=== PATIENT | female | born 1955 | race Caucasian/White ===

== ENCOUNTER 2019-03-31 23:12 | Emergency (ER) | payer BC ==
[~2019-03-31] VITALS: Ht 162.6 cm; Wt 70.3 kg
[2019-04-01] MEDS ORDERED: ALPR.5 PO (00:48)
[2019-04-01] MEDS ORDERED: ATOR10 PO (00:48)
[2019-04-01] MEDS ORDERED: ZOLP10 PO (00:49)
[2019-04-01] MEDS ORDERED: ASPI81CH PO (00:49)
[2019-04-01] MEDS ORDERED: METO25ER PO (00:49)
[2019-04-01] MEDS ORDERED: Norco 5-325 Ta1 EACH PO (01:06)
[2019-04-01] MEDS ORDERED: CEPH500 PO (01:06)
== END 2019-04-01 01:15 | disposition home or self-care (01) ==
LOC: ER 23:12
DX: L03.113 Cellulitis of right upper limb (principal); I10 Essential (primary) hypertension; Z79.82 Long term (current) use of aspirin; Z79.899 Other long term (current) drug therapy
CPT/HCPCS: 99283; A9270-GY

== ENCOUNTER 2019-04-07 15:38 | Emergency (ER) | payer BC ==
[~2019-04-07] VITALS: Ht 162.6 cm; Wt 70.3 kg
[~2019-04-07 15:38] MED LIST: ALPR.5 PO; ASPI81CH PO; ATOR10 PO; CEPH500 PO; METO25ER PO; Norco 5-325 Ta1 EACH PO; ZOLP10 PO
[2019-04-07] MEDS ORDERED: Monodox100 MG PO (17:18)
[2019-04-07] MEDS ORDERED: Percocet 10-321 EACH PO (17:18)
== END 2019-04-07 17:22 | disposition home or self-care (01) ==
LOC: ER 15:38
DX: L03.113 Cellulitis of right upper limb (principal); Z79.899 Other long term (current) drug therapy; I10 Essential (primary) hypertension
CPT/HCPCS: 73090; 99283-25

== ENCOUNTER 2020-03-27 08:54 | Day surgery (SDC) | payer BC ==
[~2020-03-27] VITALS: Ht 165.1 cm; Wt 76.8 kg
[~2020-03-27 08:54] MED LIST changes: +Monodox100 MG PO; +Percocet 10-321 EACH PO
[2020-03-27] MEDS ORDERED: XOPENEX0.63 MG/3 INH (09:13)
[2020-03-27] MEDS ORDERED: KAPSPARGO SPRI100 MG PO (09:14)
[2020-03-27] MEDS ORDERED: Aspirin EC81 MG PO (09:14)
[2020-03-27] MEDS ORDERED: ENTRESTO 97 MG1 EACH PO (09:15)
[2020-03-27] MEDS ORDERED: TIZA4 PO (09:15)
== END 2020-03-27 11:08 | disposition home or self-care (01) ==
LOC: ORSCSDS 08:54
PROVIDERS: Internal Medicine Gastroenterology
PROC: 0DBN8ZX Excision of Sigmoid Colon, Via Natural or Artificial Opening Endoscopic, Diagnostic (ICD-10-PCS; principal; 2020-03-27 09:45)
DX: Z12.11 Encounter for screening for malignant neoplasm of colon (principal); D12.5 Benign neoplasm of sigmoid colon; K64.8 Other hemorrhoids; K57.30 Diverticulosis of large intestine without perforation or abscess without bleeding; I10 Essential (primary) hypertension; I25.10 Atherosclerotic heart disease of native coronary artery without angina pectoris; Z86.73 Personal history of transient ischemic attack (TIA), and cerebral infarction without residual deficits; Z79.82 Long term (current) use of aspirin; Z79.899 Other long term (current) drug therapy
CPT/HCPCS: 88305; J2704; J7120

== ENCOUNTER 2020-07-29 09:37 | Day surgery (SDC) | payer BC ==
[~2020-07-29 09:37] MED LIST changes: +Aspirin EC81 MG PO; +ENTRESTO 97 MG1 EACH PO; +KAPSPARGO SPRI100 MG PO; +TIZA4 PO; +XOPENEX0.63 MG/3 INH
== END 2020-07-29 22:50 | disposition home or self-care (01) ==
LOC: US 09:37
DX: R22.1 Localized swelling, mass and lump, neck (principal)
CPT/HCPCS: 76536

== ENCOUNTER 2021-02-18 06:38 | Day surgery (SDC) | payer BC ==
[~2021-02-18] VITALS: Ht 162.6 cm; Wt 80.2 kg
[~2021-02-18 06:38] MED LIST changes: +ALPRAZOLAM0.5 MG PO; +Ambien10 MG PO; +LIVALO2 MG PO; +METO50ER PO
[2021-02-18] MEDS ORDERED: OXYCODONE-ACET1 EAC2 PO (07:22)
[2021-02-18] MEDS ORDERED: TIZA4 PO (07:23)
[2021-02-18] MEDS ORDERED: Ventolin/Prove6.7 GM INH (07:23)
[2021-02-18] MEDS ORDERED: ENTRESTO 97 MG1 EAC3 PO (07:23)
== END 2021-02-18 11:00 | disposition home or self-care (01) ==
LOC: ORSCSDS 06:38
PROVIDERS: Otolaryngology
PROC: 8E09XBZ Computer Assisted Procedure of Head and Neck Region (ICD-10-PCS; principal; 2021-02-18 07:30)
PROC: 0CBM8ZX Excision of Pharynx, Via Natural or Artificial Opening Endoscopic, Diagnostic (ICD-10-PCS; principal; 2021-02-18 07:30)
PROC: 09TL4ZZ Resection of Nasal Turbinate, Percutaneous Endoscopic Approach (ICD-10-PCS; principal; 2021-02-18 07:30)
PROC: 09DU4ZZ Extraction of Right Ethmoid Sinus, Percutaneous Endoscopic Approach (ICD-10-PCS; principal; 2021-02-18 07:30)
PROC: 09BL4ZZ Excision of Nasal Turbinate, Percutaneous Endoscopic Approach (ICD-10-PCS; principal; 2021-02-18 07:30)
DX: J38.7 Other diseases of larynx (principal); J32.3 Chronic sphenoidal sinusitis; J32.0 Chronic maxillary sinusitis; J32.8 Other chronic sinusitis; J34.89 Other specified disorders of nose and nasal sinuses; J34.3 Hypertrophy of nasal turbinates; I10 Essential (primary) hypertension; J45.909 Unspecified asthma, uncomplicated; Z79.899 Other long term (current) drug therapy
CPT/HCPCS: 87070; 87075; 87077; 87186; 87205; 88304; 88305; 88311; A9270; C2625; J0171; J1100; J2250; J2370; J2405; J2704; J3010; J7120

== ENCOUNTER 2021-03-01 21:09 | Emergency (ER) | payer BC ==
[~2021-03-01] VITALS: Ht 162.6 cm; Wt 77.1 kg
[~2021-03-01 21:09] MED LIST changes: +ENTRESTO 97 MG1 EAC3 PO; +OXYCODONE-ACET1 EAC2 PO; +Ventolin/Prove6.7 GM INH
[2021-03-01 21:32] LABS: BASOPHILS ABSOLUTE AUTO 0.03 K/mm3 (0.00-0.23); BASOPHILS PERCENT AUTO 0 % (0-2); EOSINOPHILS ABSOLUTE AUTO 0.01 K/mm3 (0.00-0.68); EOSINOPHILS PERCENT AUTO 0 % (0-6); Hematocrit 44.5 % (33.0-51.0); Hemoglobin 14.9 g/dL (11.5-16.0); IMMATURE GRAN ABSOLUTE AUTO 0.04 K/mm3 (0.00-0.10); IMMATURE GRAN PERCENT AUTO 0 % (0-1); LYMPHOCYTES ABSOLUTE AUTO 2.58 K/mm3 (0.84-5.20); LYMPHOCYTES PERCENT AUTO 22 % (21-46); MONOCYTES ABSOLUTE AUTO 0.77 K/mm3 (0.16-1.47); MONOCYTES PERCENT AUTO 7 % (4-13); Mean Corpuscular HGB 29.9 pg (26.0-34.0); Mean Corpuscular HGB Conc 33.5 g/dL (31.5-36.5); Mean Corpuscular Volume 89 fL (80-100); Mean Platelet Volume 10.9 fL (9.1-12.4); NEUTROPHILS ABSOLUTE AUTO 8.14 K/mm3 (1.96-9.15); NEUTROPHILS PERCENT AUTO 70 % (41-73); Platelet Count 363 K/mm3 (150-400); RDW Coefficient Variation 12.2 % (11.7-14.2); RDW Standard Deviation 39.9 fL (35.1-46.3); Red Blood Cell Count 4.98 M/mm3 (3.80-5.20); White Blood Cell Count 11.57 K/mm3 (4.00-11.30)
[2021-03-01 21:52] LABS: Alanine Aminotransfer (ALT/SGP 170 U/L (12-78); Albumin, Blood 4.5 g/dL (3.4-5.0); Albumin/Globulin Ratio 1.1 (0.8-1.8); Alk Phos 356 U/L (50-136); Anion Gap 6 mmol/L (6-16); Aspartate Aminotrans (AST/SGOT 54 U/L (12-37); Bilirubin, Total 0.7 mg/dL (0.1-1.0); Blood Urea Nitrogen 13 mg/dL (8-24); Bun/Creatinine Ratio 13.8 (12.0-20.0); CO2, Blood 27 mmol/L (21-32); Calcium, Blood 10.3 mg/dL (8.5-10.1); Chloride, Blood 105 mmol/L (98-108); Creatinine, Blood 0.94 mg/dL (0.40-1.00); Globulin, Blood 4.1 g/dL (2.2-4.0); Glomerular Filtration Rate >60 (60-); Glucose, Blood 131 mg/dL (70-99); Potassium, Blood 3.9 mmol/L (3.5-5.5); Sodium, Blood 138 mmol/L (136-145); Total Protein, Blood 8.6 g/dL (6.4-8.2)
[2021-03-02 01:02] LABS: Source, Urine Clean Catch
[2021-03-02 01:07] LABS: Bilirubin, Urine Neg (Neg); Blood, Urine 5+ (Neg); Glucose Qualitative, Urine Neg (Neg); Ketones, Urine 3+ (Neg); Leukocyte Esterase, Urine Neg (Neg); Nitrite, Urine Neg (Neg); Protein, Urine 3+ (Neg); Urobilinogen, Urine NORM (Normal)
[2021-03-02 01:09] LABS: Appearance, Urine Clear (Clear); Color, Urine Yellow (P-Yellow)
[2021-03-02] MEDS ORDERED: PHENERGAN25 MG PR (01:10)
[2021-03-02] MEDS ORDERED: ONDA4ODT MM (01:10)
[2021-03-02 01:16] LABS: Amorphous Light (0-Heavy); Bacteria Mod /hpf; Hyaline Casts 0-2 /lpf (0-2); Mucus Light (0-Heavy); Squamous Epithelial Cells Not Seen /hpf (Few)
== END 2021-03-02 02:15 | disposition home or self-care (01) ==
LOC: ER 21:09
PROVIDERS: Physician Assistant
DX: R11.2 Nausea with vomiting, unspecified (principal); R19.7 Diarrhea, unspecified; I10 Essential (primary) hypertension; Z87.891 Personal history of nicotine dependence; Z88.8 Allergy status to other drugs, medicaments and biological substances; Z79.899 Other long term (current) drug therapy; Z79.82 Long term (current) use of aspirin
CPT/HCPCS: 36415; 80053; 81001; 83690; 85025; 87086; 96374; 96375; 99284-25; J2270; J2405; J2550; J2765; J7030

== ENCOUNTER 2021-09-21 12:14 | Day surgery (SDC) | payer BC ==
[~2021-09-21] VITALS: Ht 162.6 cm; Wt 82.0 kg
[~2021-09-21 12:14] MED LIST changes: +ONDA4ODT MM; +PHENERGAN25 MG PR
--- NOTE | 2021-09-21 14:24 | NUR ---
09/21/21 1424 Love Lopez LATE ENTRY----SEDATION WITH PROPOFOL WAS STARTED AT 1258. SOON THIS NURSE LOOKED AT THE MONITOR AFTER PUSHING THE FIRST DOSE OF PROPOFOL THE HEART RHYTHM WAS VERY ABNORMAL AND IT APPEARED THAT THE PATIENT WAS IN SVT. NURSE ALERTED DR BLANDON AND HE AGREES PATIENT APPEARED IN SVT. THIS RHYTHM CONTINUED FOR APPROXIMATELY 2 MINUTES, SECOND DOSE OF PROPOFOL WAS GIVEN AND DISCUSSION TO SEE IF PATIENT WOULD CONVERT ON HER OWN. A TOTAL OF 100MG OF PROPOFOL WAS GIVEN, DR SINGH WAS CALLED IN TO CONSULT AND PROPOFOL WAS STOPPED. AT THE TIME DR SINGH CAME IN THE PATIENT WAS BACK IN HER NORMAL RHYTHM. WHILE DR SINGH WAS IN THE ROOM THE PATIENT AGAIN WENT BACK INTO SVT. DECSION WAS MADE BY DR BLANDON AND DR SINGH TO ABORT PROCEDURE. THE SCOPE WAS NEVER STARTED, JUST THE SEDATION. PATIENT WOKE UP ON HER OWN AND DISCUSSION WAS HAD WITH PATIENT REGARDING PROCEDURE BEING ABORTED. PATIENT LEFT THE ENDOSCOPY ROOM AT 1312. SHE WAS ALERT AND TALKING AND AWARE OF SURROUNDINGS AND WHY PROCEDURE WAS ABORTED. PATIENT WAS RECOVERED AND GIVEN WATER AND SOME CRACKERS AND PATIENT TOOK HER DOSE OF METOPROLOL WHILE IN THE RECOVERY/SDU ROOM. SHE WAS DISCHARGED IN STABLE CONDITION AND INFORMED TO FOLLOW UP WITH DR VILLARREAL AND RE-SCHEDULE PROCEDURE SOON DR VILLARREAL GIVES THE OK. PATIENT VERBALIZED UNDERSTAND OF ALL INSTRUCTIONS AND VERBALIZED THE INSTRUCTIONS BACK TO THIS NURSE. PATIENTS WAS ALSO INFORMED WHEN PATIENT WAS TAKEN OUT TO THE CAR
== END 2021-09-21 13:25 | disposition home or self-care (01) ==
LOC: ORSCSDS 12:14
PROVIDERS: Surgery
PROC: 0DJ08ZZ Inspection of Upper Intestinal Tract, Via Natural or Artificial Opening Endoscopic (ICD-10-PCS; principal; 2021-09-21 13:00)
DX: R10.11 Right upper quadrant pain (principal); R11.2 Nausea with vomiting, unspecified; K21.9 Gastro-esophageal reflux disease without esophagitis; Z53.8 Procedure and treatment not carried out for other reasons; I10 Essential (primary) hypertension; Z79.899 Other long term (current) drug therapy; Z79.82 Long term (current) use of aspirin
CPT/HCPCS: J2704; J7120

== ENCOUNTER → 2022-01-27 | Outpatient (CLI) | payer BC | LOC: LAB SHORT 14:20 | DX: Z08 Encounter for follow-up examination after completed treatment for malignant neoplasm (principal); S20.462A Insect bite (nonvenomous) of left back wall of thorax, initial encounter; L08.9 Local infection of the skin and subcutaneous tissue, unspecified; D22.5 Melanocytic nevi of trunk; D22.61 Melanocytic nevi of right upper limb, including shoulder; D22.62 Melanocytic nevi of left upper limb, including shoulder; L82.1 Other seborrheic keratosis; L81.4 Other melanin hyperpigmentation; L57.8 Other skin changes due to chronic exposure to nonionizing radiation; L85.3 Xerosis cutis; Z85.820 Personal history of malignant melanoma of skin | CPT/HCPCS: 87070; 87077; 87147; 87186; 87205 ==

== ENCOUNTER 2022-03-30 14:36 | Emergency (ER) | payer MEDICARE, BC ==
[~2022-03-30] VITALS: Ht 162.6 cm; Wt 77.1 kg
[2022-03-30 16:22] LABS: BASOPHILS ABSOLUTE AUTO 0.02 K/mm3 (0.00-0.23); BASOPHILS PERCENT AUTO 0 % (0-2); EOSINOPHILS ABSOLUTE AUTO 0.01 K/mm3 (0.00-0.68); EOSINOPHILS PERCENT AUTO 0 % (0-6); Hematocrit 44.4 % (33.0-51.0); IMMATURE GRAN ABSOLUTE AUTO 0.05 K/mm3 (0.00-0.10); IMMATURE GRAN PERCENT AUTO 1 % (0-1); LYMPHOCYTES ABSOLUTE AUTO 2.04 K/mm3 (0.84-5.20); LYMPHOCYTES PERCENT AUTO 22 % (21-46); MONOCYTES ABSOLUTE AUTO 0.51 K/mm3 (0.16-1.47); MONOCYTES PERCENT AUTO 5 % (4-13); Mean Corpuscular HGB 31.1 pg (26.0-34.0); Mean Corpuscular HGB Conc 33.8 g/dL (31.5-36.5); Mean Corpuscular Volume 92 fL (80-100); Mean Platelet Volume 11.2 fL (9.1-12.4); NEUTROPHILS ABSOLUTE AUTO 6.86 K/mm3 (1.96-9.15); NEUTROPHILS PERCENT AUTO 72 % (41-73); Platelet Count 215 K/mm3 (150-400); RDW Coefficient Variation 13.1 % (11.7-14.2); RDW Standard Deviation 44.2 fL (35.1-46.3); Red Blood Cell Count 4.83 M/mm3 (3.80-5.20); White Blood Cell Count 9.49 K/mm3 (4.00-11.30)
[2022-03-30] MEDS ORDERED: Percocet 5-3251 EACH (16:40)
[2022-03-30] MEDS ORDERED: PERCOCET 10-321 EA12 PO (16:40)
[2022-03-30] MEDS ORDERED: ATOR80 PO (16:41)
[2022-03-30] MEDS ORDERED: ASPI81CH PO (16:41)
[2022-03-30 16:42] LABS: Albumin, Blood 4.3 g/dL (3.4-5.0); Albumin/Globulin Ratio 1.3 (0.8-1.8); Bilirubin, Total 1.3 mg/dL (0.1-1.0); Bun/Creatinine Ratio 16.3 (12.0-20.0); Calcium, Blood 9.6 mg/dL (8.5-10.1); Creatinine, Blood 0.8 mg/dL (0.40-1.00); Globulin, Blood 3.3 g/dL (2.2-4.0); Potassium, Blood 3.6 mmol/L (3.5-5.5); Total Protein, Blood 7.6 g/dL (6.4-8.2)
[2022-03-30] MEDS ORDERED: FAMO20 PO (17:17)
[2022-03-30] MEDS ORDERED: ONDA4ODT MM (17:17)
== END 2022-03-30 17:54 | disposition home or self-care (01) ==
LOC: ER 14:36
PROVIDERS: Physician Assistant
DX: K29.90 Gastroduodenitis, unspecified, without bleeding (principal); K27.9 Peptic ulcer, site unspecified, unspecified as acute or chronic, without hemorrhage or perforation; I10 Essential (primary) hypertension; Z87.891 Personal history of nicotine dependence
CPT/HCPCS: 36415; 76705; 80053; 83690; 85025; J0780; J1170; J2405; J3010; J7030

== ENCOUNTER 2022-03-31 20:39 | Emergency (ER) | payer MEDICARE, BC ==
[~2022-03-31] VITALS: Ht 162.6 cm; Wt 77.1 kg
[~2022-03-31 20:39] MED LIST changes: +ATOR80 PO; +FAMO20 PO; +PERCOCET 10-321 EA12 PO; +Percocet 5-3251 EACH
[2022-03-31 21:41] LABS: BASOPHILS ABSOLUTE AUTO 0.04 K/mm3 (0.00-0.23); BASOPHILS PERCENT AUTO 0 % (0-2); EOSINOPHILS ABSOLUTE AUTO 0.01 K/mm3 (0.00-0.68); EOSINOPHILS PERCENT AUTO 0 % (0-6); Hematocrit 43.7 % (33.0-51.0); Hemoglobin 14.9 g/dL (11.5-16.0); IMMATURE GRAN ABSOLUTE AUTO 0.06 K/mm3 (0.00-0.10); IMMATURE GRAN PERCENT AUTO 1 % (0-1); LYMPHOCYTES ABSOLUTE AUTO 2.49 K/mm3 (0.84-5.20); LYMPHOCYTES PERCENT AUTO 25 % (21-46); MONOCYTES ABSOLUTE AUTO 0.57 K/mm3 (0.16-1.47); MONOCYTES PERCENT AUTO 6 % (4-13); Mean Corpuscular HGB 30.7 pg (26.0-34.0); Mean Corpuscular HGB Conc 34.1 g/dL (31.5-36.5); Mean Corpuscular Volume 90 fL (80-100); NEUTROPHILS ABSOLUTE AUTO 6.71 K/mm3 (1.96-9.15); NEUTROPHILS PERCENT AUTO 68 % (41-73); Platelet Count 259 K/mm3 (150-400); RDW Standard Deviation 43.4 fL (35.1-46.3); Red Blood Cell Count 4.85 M/mm3 (3.80-5.20); White Blood Cell Count 9.88 K/mm3 (4.00-11.30)
[2022-03-31 21:50] LABS: Source, Urine Clean Catch
[2022-03-31 21:56] LABS: Bilirubin, Urine Neg (Neg); Blood, Urine 5+ (Neg); Glucose Qualitative, Urine Neg (Neg); Ketones, Urine 4+ (Neg); Leukocyte Esterase, Urine Neg (Neg); Nitrite, Urine Neg (Neg); Protein, Urine 3+ (Neg); Specific Gravity, Urine 1.025 (1.003-1.022); Urobilinogen, Urine NORM (Normal)
[2022-03-31 22:02] LABS: Albumin, Blood 4.7 g/dL (3.4-5.0); Albumin/Globulin Ratio 1.5 (0.8-1.8); Bilirubin, Total 1.3 mg/dL (0.1-1.0); Calcium, Blood 9.7 mg/dL (8.5-10.1); Creatinine, Blood 0.93 mg/dL (0.40-1.00); Globulin, Blood 3.2 g/dL (2.2-4.0); Magnesium, Blood 2.3 mg/dL (1.6-2.4); Potassium, Blood 3.6 mmol/L (3.5-5.5); Total Protein, Blood 7.9 g/dL (6.4-8.2)
[2022-03-31 22:05] LABS: Appearance, Urine Clear (Clear); Color, Urine Yellow (P-Yellow)
[2022-03-31 22:06] LABS: Bacteria Few /hpf; Squamous Epithelial Cells Rare /hpf (Few); White Blood Cells, Urine 0-2 /hpf (0-5)
[2022-03-31 22:07] LABS: Mucus Light (0-Heavy)
[2022-04-01] MEDS ORDERED: PROM25 PO (00:59)
== END 2022-04-01 02:11 | disposition home or self-care (01) ==
LOC: ER 20:39
PROVIDERS: Physician Assistant
DX: R11.2 Nausea with vomiting, unspecified (principal); I10 Essential (primary) hypertension; Z87.891 Personal history of nicotine dependence; Z88.8 Allergy status to other drugs, medicaments and biological substances; Z79.899 Other long term (current) drug therapy
CPT/HCPCS: 80053; 81001; 83690; 83735; 85025; 93005; 93010; 96361; 96374; 96375; 99283-25; A9270; J1885; J2405; J2550; J7030

== ENCOUNTER → 2022-04-05 | Outpatient (CLI) | payer MEDICARE, BC ==
[~2022-04-05] MED LIST changes: +PROM25 PO
== END | disposition home or self-care (01) ==
LOC: LAB SHORT 10:00 → LAB 10:00
DX: N30.01 Acute cystitis with hematuria (principal)
CPT/HCPCS: 87077; 87086; 87186

== ENCOUNTER 2022-04-29 10:00 | Day surgery (SDC) | payer MEDICARE, BC ==
[~2022-04-29] VITALS: Ht 165.1 cm; Wt 79.1 kg
[~2022-04-29 10:00] MED LIST changes: +ALBU90OI INH; +LIVALO4 MG PO
[2022-04-29] MEDS ORDERED: ACYC200 (11:10)
--- NOTE | 2022-04-29 11:39 | NUR ---
04/29/22 1139 ROSA M GIVENS THREE ATTEMPTS AT IV. FIRST ATTEMPT BY MA IN RIGHT HAND INFILTRATED. SECOND ATTEMPT BY MA IN RIGHT FOREARM INFILTRATED. THIRD ATTEMPT BY MA IN RIGHT AC SUCCESSFUL.
== END 2022-04-29 12:45 | disposition home or self-care (01) ==
LOC: ORSCSDS 10:00
PROVIDERS: Surgery
PROC: 0DB68ZX Excision of Stomach, Via Natural or Artificial Opening Endoscopic, Diagnostic (ICD-10-PCS; principal; 2022-04-29 11:00)
PROC: 0DB48ZX Excision of Esophagogastric Junction, Via Natural or Artificial Opening Endoscopic, Diagnostic (ICD-10-PCS; principal; 2022-04-29 11:00)
DX: R10.11 Right upper quadrant pain (principal); K59.00 Constipation, unspecified; R10.9 Unspecified abdominal pain; K29.70 Gastritis, unspecified, without bleeding; K20.90 Esophagitis, unspecified without bleeding; K57.50 Diverticulosis of both small and large intestine without perforation or abscess without bleeding; I10 Essential (primary) hypertension; Z79.899 Other long term (current) drug therapy
CPT/HCPCS: 88305; 88342; J2704; J7120

== ENCOUNTER → 2024-10-04 | Outpatient (CLI) | payer MEDICARE, BC ==
[~2024-10-04] MED LIST changes: +ACYC200
== END ==
LOC: LAB 11:30 → LAB SHORT 11:30
DX: R35.0 Frequency of micturition (principal)
CPT/HCPCS: 87077; 87086; 87186

== ENCOUNTER 2025-06-06 19:02 | Emergency (ER) | payer MEDICARE, BC ==
[~2025-06-06] VITALS: Ht 165.1 cm; Wt 74.8 kg
[2025-06-06 20:53] LABS: Alanine Aminotransfer (ALT/SGP 18.0 U/L (12-78); Albumin, Blood 4.1 g/dL (3.4-5.0); Albumin/Globulin Ratio 1.4 (0.8-1.8); Anion Gap 8.0 mmol/L (3-11); Aspartate Aminotrans (AST/SGOT 20.0 U/L (12-37); Bilirubin, Total 1.4 mg/dL (0.1-1.0); Blood Urea Nitrogen 12.0 mg/dL (8-24); CO2, Blood 29.0 mmol/L (21-32); Calcium, Blood 9.1 mg/dL (8.5-10.1); Chloride, Blood 97.0 mmol/L (98-108); Creatinine, Blood 1.02 mg/dL (0.40-1.00); Globulin, Blood 3.0 g/dL (2.2-4.0); Glucose, Blood 103.0 mg/dL (70-99); Potassium, Blood 3.6 mmol/L (3.5-5.5); Sodium, Blood 130.0 mmol/L (136-145); Total Protein, Blood 7.1 g/dL (6.4-8.2)
[2025-06-06 21:06] LABS: BASOPHILS ABSOLUTE AUTO 0.02 K/mm3 (0.00-0.23); BASOPHILS PERCENT AUTO 0 % (0-2); EOSINOPHILS ABSOLUTE AUTO 0.01 K/mm3 (0.00-0.68); EOSINOPHILS PERCENT AUTO 0 % (0-6); Hematocrit 38.9 % (33.0-51.0); Hemoglobin 13.6 g/dL (11.5-16.0); IMMATURE GRAN ABSOLUTE AUTO 0.02 K/mm3 (0.00-0.10); IMMATURE GRAN PERCENT AUTO 0 % (0-1); LYMPHOCYTES ABSOLUTE AUTO 3.17 K/mm3 (0.84-5.20); LYMPHOCYTES PERCENT AUTO 34 % (21-46); MONOCYTES ABSOLUTE AUTO 0.95 K/mm3 (0.16-1.47); MONOCYTES PERCENT AUTO 10 % (4-13); Mean Corpuscular HGB Conc 35.0 g/dL (31.5-36.5); Mean Corpuscular Volume 91 fL (80-100); NEUTROPHILS ABSOLUTE AUTO 5.30 K/mm3 (1.96-9.15); NEUTROPHILS PERCENT AUTO 56 % (41-73); NRBC ABSOLUTE 0.00 K/mm3 (0.00-0.02); NRBC Auto 0.0 /100 WBC (0.0-0.2); Platelet Count 255 K/mm3 (150-400); RDW Coefficient Variation 12.4 % (11.7-14.2); RDW Standard Deviation 41.1 fL (35.1-46.3)
[2025-06-06] MEDS ORDERED: OxyCODONE 5 mg/Acetamin 325 mg TABLET PO ONE (22:25)
[2025-06-06] MEDS ORDERED: NS 1,000 ML IV SCH (22:25)
[2025-06-06] MEDS ORDERED: Prochlorperazine Edisylate 10 mg Vial IV ONE (22:25)
[2025-06-06 22:33] LABS: Magnesium, Blood 2.5 mg/dL (1.6-2.4)
[2025-06-06] MEDS ORDERED: Ketorolac Tromethamine 15mg Vial IV ONE (23:00)
[2025-06-06 23:13] LABS: Source, Urine Clean Catch
[2025-06-06 23:30] VITALS: BP 193/106
[2025-06-06 23:35] LABS: Bilirubin, Urine Neg (Neg); Glucose Qualitative, Urine Neg (Neg); Ketones, Urine Neg (Neg); Leukocyte Esterase, Urine Neg (Neg); Protein, Urine 1+ (Neg); Specific Gravity, Urine 1.005 (1.003-1.022); Urobilinogen, Urine NORM (Normal)
[2025-06-06 23:46] LABS: Color, Urine Pale Yellow (P-Yellow)
[2025-06-06 23:47] LABS: Red Blood Cells, Urine 0-2 /hpf (0-2); White Blood Cells, Urine 0-2 /hpf (0-5)
[2025-06-07] MEDS ORDERED: OxyCODONE 5 mg/Acetamin 325 mg TABLET PO ONE (00:35)
== END 2025-06-07 00:45 | disposition home or self-care (01) ==
LOC: ER 19:02
PROVIDERS: Emergency Medicine
DX: R11.2 Nausea with vomiting, unspecified (principal); I10 Essential (primary) hypertension; R00.0 Tachycardia, unspecified; Z87.891 Personal history of nicotine dependence; Z79.82 Long term (current) use of aspirin; Z79.899 Other long term (current) drug therapy; Z88.8 Allergy status to other drugs, medicaments and biological substances
CPT/HCPCS: 80053; 81001; 83690; 83735; 84439; 84443; 84484; 85025; 93005; 93010; 96374; 96375; 99284-25; A9270; J0780; J1885; J7030

== ENCOUNTER → 2025-06-06 | Outpatient (CLI) | payer MEDICARE, BC ==
[2025-06-06 18:08] LABS: BASOPHILS ABSOLUTE AUTO 0.02 K/mm3 (0.00-0.23); BASOPHILS PERCENT AUTO 0 % (0-2); EOSINOPHILS ABSOLUTE AUTO 0.00 K/mm3 (0.00-0.68); EOSINOPHILS PERCENT AUTO 0 % (0-6); Hematocrit 41.0 % (33.0-51.0); Hemoglobin 14.4 g/dL (11.5-16.0); IMMATURE GRAN ABSOLUTE AUTO 0.02 K/mm3 (0.00-0.10); IMMATURE GRAN PERCENT AUTO 0 % (0-1); LYMPHOCYTES ABSOLUTE AUTO 2.55 K/mm3 (0.84-5.20); LYMPHOCYTES PERCENT AUTO 30 % (21-46); MONOCYTES ABSOLUTE AUTO 0.76 K/mm3 (0.16-1.47); MONOCYTES PERCENT AUTO 9 % (4-13); Mean Corpuscular HGB Conc 35.1 g/dL (31.5-36.5); Mean Corpuscular Volume 90 fL (80-100); NEUTROPHILS ABSOLUTE AUTO 5.21 K/mm3 (1.96-9.15); NEUTROPHILS PERCENT AUTO 61 % (41-73); NRBC ABSOLUTE 0.00 K/mm3 (0.00-0.02); NRBC Auto 0.0 /100 WBC (0.0-0.2); Platelet Count 246 K/mm3 (150-400); RDW Coefficient Variation 12.4 % (11.7-14.2); RDW Standard Deviation 41.0 fL (35.1-46.3)
[2025-06-06 18:27] LABS: Alanine Aminotransfer (ALT/SGP 25.0 U/L (12-78); Albumin, Blood 4.6 g/dL (3.4-5.0); Albumin/Globulin Ratio 1.5 (0.8-1.8); Anion Gap 14.0 mmol/L (3-11); Aspartate Aminotrans (AST/SGOT 16.0 U/L (12-37); Bilirubin, Total 1.5 mg/dL (0.1-1.0); Blood Urea Nitrogen 14.0 mg/dL (8-24); CO2, Blood 30.0 mmol/L (21-32); Calcium, Blood 9.5 mg/dL (8.5-10.1); Chloride, Blood 93.0 mmol/L (98-108); Creatinine, Blood 1.21 mg/dL (0.40-1.00); Globulin, Blood 3.1 g/dL (2.2-4.0); Glucose, Blood 105.0 mg/dL (70-99); Magnesium, Blood 2.3 mg/dL (1.6-2.4); Potassium, Blood 3.3 mmol/L (3.5-5.5); Sodium, Blood 134.0 mmol/L (136-145); Thyroid Stimulating Hormone 1.092 uIU/mL (0.360-4.800); Total Protein, Blood 7.7 g/dL (6.4-8.2)
== END | disposition home or self-care (01) ==
LOC: LAB 18:03 → LAB SHORT 18:03
PROVIDERS: Emergency Medicine
DX: R11.2 Nausea with vomiting, unspecified (principal); R00.0 Tachycardia, unspecified
CPT/HCPCS: 80053; 83690; 83735; 84439; 84443; 85025